=== PATIENT | male | born 1995 | race Two or more races ===

== ENCOUNTER → 2022-07-20 16:30 | Emergency (ER) | payer MEDICAID, OTHER | END | disposition left against medical advice (07) | LOC: EDBD 16:30 → ER 16:30 | DX: T65.91XA Toxic effect of unspecified substance, accidental (unintentional), initial encounter (principal); Z53.21 Procedure and treatment not carried out due to patient leaving prior to being seen by health care provider; Y92.9 Unspecified place or not applicable ==

== ENCOUNTER 2022-07-27 14:34 | Emergency (ER) | payer MEDICAID ==
[~2022-07-27] VITALS: Ht 190.5 cm; Wt 125.0 kg
[2022-07-27 14:40] VITALS: BP 138/82
[2022-07-27] MEDS: TETANUS-DIPTH-ACEL PERTUSSIS 0.5ML SYR Tdap IM ONE (15:10)
[2022-07-27] MEDS: IBUPROFEN 800 MG TAB PO ONE (15:17)
[2022-07-27] MEDS: NEOMYCIN-BACITRACIN-POLYM UNITDOSE PKG TOP OINT TOP ONE (15:17)
== END 2022-07-27 16:00 ==
LOC: EDBD 14:34 → ER 14:34
DX: S90.411A Abrasion, right great toe, initial encounter (principal); F17.210 Nicotine dependence, cigarettes, uncomplicated; F15.10 Other stimulant abuse, uncomplicated; Z23 Encounter for immunization; X58.XXXA Exposure to other specified factors, initial encounter; Y93.89 Activity, other specified; Y92.89 Other specified places as the place of occurrence of the external cause; Y99.8 Other external cause status
CPT/HCPCS: 90471; 90715

== ENCOUNTER 2023-10-06 14:16 | Emergency (ER) | payer MEDICAID ==
[~2023-10-06] VITALS: Ht 180.3 cm; Wt 130.0 kg
[2023-10-06 14:49] VITALS: PULSE 104; RESP 16; O2SAT 96
[2023-10-06 17:02] VITALS: BP 137/86; PULSE 83; RESP 18; TEMP 98; O2SAT 95
== END 2023-10-06 17:18 | disposition home or self-care (01) ==
LOC: EDBD 14:16 → ER 14:16
DX: F18.10 Inhalant abuse, uncomplicated (principal); F17.210 Nicotine dependence, cigarettes, uncomplicated; F15.10 Other stimulant abuse, uncomplicated

== ENCOUNTER 2025-01-27 19:23 | Emergency (ER) | payer MEDICAID ==
[~2025-01-27] VITALS: Ht 177.8 cm; Wt 107.0 kg
[2025-01-27 19:37] VITALS: BP 162/61; PULSE 105; RESP 20; TEMP 98.9; O2SAT 97
== END 2025-01-27 22:02 | disposition left against medical advice (07) ==
LOC: ER 19:23 → EDBD 19:23 → ER 22:02
DX: R10.9 Unspecified abdominal pain (principal); R51.9 Headache, unspecified; Z53.21 Procedure and treatment not carried out due to patient leaving prior to being seen by health care provider

== ENCOUNTER 2025-01-28 18:28 | Emergency (ER) | payer MEDICAID ==
[~2025-01-28] VITALS: Ht 180.3 cm; Wt 113.6 kg
[2025-01-28 18:35] VITALS: BP 138/90; PULSE 100; RESP 18; TEMP 98; O2SAT 100
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
== END 2025-01-28 19:04 | disposition home or self-care (01) ==
LOC: EDBD 18:28 → ER 18:28
DX: T69.9XXA Effect of reduced temperature, unspecified, initial encounter (principal); F17.210 Nicotine dependence, cigarettes, uncomplicated; X31.XXXA Exposure to excessive natural cold, initial encounter; Y93.89 Activity, other specified; Y92.89 Other specified places as the place of occurrence of the external cause; Y99.8 Other external cause status

== ENCOUNTER 2025-01-31 23:09 | Emergency (ER) | payer MEDICAID ==
[~2025-01-31] VITALS: Ht 177.8 cm; Wt 121.0 kg
[2025-01-31 23:27] VITALS: BP 127/86; PULSE 109; RESP 20; TEMP 99.2; O2SAT 98
[2025-02-01] MEDS ORDERED: BACITRACIN TOP OINT 1 UD PKG TOP ONE (00:03)
[2025-02-01] MEDS: BACITRACIN TOP OINT 1 UD PKG TOP ONE (00:03)
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
== END 2025-02-01 00:12 | disposition home or self-care (01) ==
LOC: ER 23:09
DX: T23.251A Burn of second degree of right palm, initial encounter (principal); F17.210 Nicotine dependence, cigarettes, uncomplicated; X58.XXXA Exposure to other specified factors, initial encounter; Y93.89 Activity, other specified; Y92.89 Other specified places as the place of occurrence of the external cause; Y99.8 Other external cause status
CPT/HCPCS: 16020